=== PATIENT | male | born 1995 | race African-American/Black ===

== ENCOUNTER 2023-09-23 01:51 | Emergency (ER) | payer SELFPAY ==
[2023-09-23 01:52] VITALS: BP 121/81; PULSE 105; RESP 20; TEMP 36.6; O2SAT 95; BMI 21.2
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
[2023-09-23] MEDS: IBUPROFEN 600 MG TABLET PO (02:12)
[2023-09-23] MEDS: ACETAMINOPHEN 500MG TAB 1000 MG PO (02:13)
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
[2023-09-23 02:30] VITALS: BP 120/78; PULSE 95; RESP 18; TEMP 36.6; O2SAT 98
== END 2023-09-23 02:37 | disposition home or self-care (01) ==
PROVIDERS: Emergency Provider Emergency Medicine
DX: G40.919 Epilepsy, unspecified, intractable, without status epilepticus (principal); R51.9 Headache, unspecified; F15.90 Other stimulant use, unspecified, uncomplicated; F17.210 Nicotine dependence, cigarettes, uncomplicated
CPT/HCPCS: 99283